=== PATIENT | male | born 1960 | race Two or more races ===

== ENCOUNTER 2019-03-06 11:02 | Outpatient (CLI) | payer OTHER | END 2019-03-06 13:04 | disposition home or self-care (01) | LOC: RAD 11:02 | DX: M75.41 Impingement syndrome of right shoulder (principal) ==

== ENCOUNTER 2021-09-29 09:38 | Outpatient (CLI) | payer OTHER | END 2021-09-29 11:27 | disposition home or self-care (01) | LOC: SONOGRAMA 09:38 | PROVIDERS: ATTEND Physical Medicine & Rehabilitation | DX: M25.539 Pain in unspecified wrist (principal) ==

== ENCOUNTER 2021-09-29 10:45 | Outpatient (CLI) | payer OTHER | END 2021-09-29 10:46 | disposition home or self-care (01) | LOC: NUCLEAR 10:45 | PROVIDERS: ATTEND Physical Medicine & Rehabilitation | DX: I87.2 Venous insufficiency (chronic) (peripheral) (principal) ==

== ENCOUNTER 2021-10-02 12:18 | Outpatient (CLI) | payer OTHER | END 2021-10-02 12:25 | disposition home or self-care (01) | LOC: NUCLEAR 12:18 | PROVIDERS: ATTEND Physical Medicine & Rehabilitation | DX: I87.2 Venous insufficiency (chronic) (peripheral) (principal) ==